=== PATIENT | male | born 1945 | race Caucasian/White ===

== ENCOUNTER → 2018-05-06 12:08 | Outpatient (CLI) | payer MEDICARE, OTHER, SELFPAY ==
[2018-05-06 12:50] LABS: Blood Urea Nitrogen 18 mg/dL (9-20)
== END ==
PROVIDERS: PCP Internal Medicine; Visit Provider Urology
DX: R31.0 Gross hematuria (principal)
CPT/HCPCS: 36415; 82565; 84520

== ENCOUNTER → 2018-05-07 10:16 | Outpatient (CLI) | payer MEDICARE, OTHER, SELFPAY ==
--- NOTE | 2018-05-07 | DI.CT.S_ITS ---
PROCEDURE: CT ABDOMEN PELVIS WO/W CON INDICATIONS: Gross hematuria TECHNIQUE: Optional 5 mm thick noncontrast images acquired from the diaphragm to the symphysis pubis. After the administration of intravenous contrast, 5 mm thick images acquired from the diaphragm to the symphysis pubis after a 10-minute delay. 2 mm thick coronal and sagittal reformats were then performed of the kidneys and ureters. For radiation dose reduction, the following was used: automated exposure control, adjustment of mA and/or kV according to patient size. COMPARISON: [facility], CT, ABDOMEN/PELVIS WITH CONTRAST, 11/18/2013, 15:57. [facility], CT, ABDOMEN/PELVIS WITHOUT CONTRAS, 11/02/2013, 12:10. [facility], CT, KIDNEY/ URETER/BLADDER, 05/08/2008, 5:22. FINDINGS: Image quality: Excellent. Lung bases: Lung bases are clear. Heart size is normal. Urinary system: Both kidneys are normal in size, without hydronephrosis or nephrolithiasis on pre-contrast images. Bilateral renal cysts are stable compared 11/18/2013. No perinephric fat stranding. There is normal bilateral renal enhancement. Renal calyces appear normal in morphology when filled with contrast. Opacified portions of both ureters demonstrate normal caliber. Urinary bladder wall is slightly thickened and trabeculated. Patent urachal remnant involving the anterior midline of the superior bladder is stable. No calcified bladder stones. The prostate is enlarged. Other solid organs: Liver is normal in size and enhancement. 8mm cyst the lateral segment of the left hepatic lobe is stable compared to prior exams. Gallbladder is within normal limits. Biliary system is non dilated. Pancreas enhances normally. Spleen is normal in size and enhancement. Spleen has irregular contours possibly related to trauma in the remote past. No adrenal nodules. Peritoneum and bowel: Bowel loops demonstrate normal wall thickness and caliber. Numerous diverticuli are identified throughout the colon. Mild inflammatory changes noted adjacent to diverticuli at the junction of the left/sigmoid colon compatible with uncomplicated diverticulitis. No free fluid or air. Nodes and vessels: No retroperitoneal or mesenteric adenopathy by size criteria. Aorta and inferior vena cava are normal in size. Abdominal wall: No ventral hernias. Pelvis: No pathologic free pelvic fluid. No inguinal hernias or adenopathy. Bones: No suspicious bony lesions. No vertebral body compression fractures. Spine degenerative disc disease and facet arthropathy. IMPRESSION: 1. No renal stone or hydronephrosis. 2. No renal mass identified. 3. No abnormal filling defects identified in the genitourinary collecting system. 4. Mild, diffuse urinary bladder thickening and trabeculation likely related to chronic inflammation, however underlying infiltrating neoplastic process cannot be completely excluded by CT imaging. 5. Patent urinary bladder urachal remnant is stable compared to prior exams. 6. Mild distal left colon diverticulitis without associated free air or peridiverticular abscess. 7. Prostate hypertrophy. 8. Findings discussed with Amanda Damian of Dr. Mal Pat's office on 05/07/18 at 1211 hrs. Ms. Damian will relay the findings to Dr. Pat. Dictated by: Luzma Osborne MD, PhD on 05/07/2018 at 11:54 Approved by: Luzma Osborne MD, PhD on 05/07/2018 at 12:12
== END ==
PROVIDERS: PCP Physician Assistant; Visit Provider Urology
DX: R31.0 Gross hematuria (principal); N32.89 Other specified disorders of bladder; N40.0 Benign prostatic hyperplasia without lower urinary tract symptoms; K57.32 Diverticulitis of large intestine without perforation or abscess without bleeding
CPT/HCPCS: 74178; Q9967

== ENCOUNTER → 2018-06-25 10:43 | Outpatient (CLI) | payer MEDICARE, OTHER, SELFPAY ==
--- NOTE | 2018-06-25 10:51 | DI.RAD.S_ITS ---
PROCEDURE: XR CHEST 2V INDICATIONS: PREOPERATIVE FOR SURGERY TECHNIQUE: 2 views of the chest were acquired. COMPARISON: None. FINDINGS: Surgical changes and devices: None. Lungs and pleura: No pleural effusions or pneumothorax. Lungs are clear. Mediastinum: Mediastinal contours are normal. Heart size is normal. Bones and chest wall: No suspicious bony abnormalities. Soft tissues appear unremarkable. IMPRESSION: Normal for age. Dictated by: Zeyad Onofre M.D. on 06/25/2018 at 11:47 Approved by: Zeyad Onofre M.D. on 06/25/2018 at 11:47
[2018-06-25 12:09] LABS: Add Manual Diff / Slide Review NO; Basophils Percent Auto 1.1 % (0-2); Eosinophils Percent Auto 1.5 % (2-4); Hematocrit 47.2 % (41-53); Hemoglobin 15.7 g/dL (13.5-17.5); Lymphocytes Percent Auto 24.5 % (25-40); Mean Corpuscular HGB Conc 33.3 % (30-36); Mean Corpuscular Hemoglobin 31.9 PG (26-34); Neutrophils Absolute Auto 2700 /uL (3000-5900); Neutrophils Percent Auto 62.9 % (50-75); Platelet Count 177 X10^3/uL (150-400); Red Blood Cell Count 4.92 X10^6/uL (4.5-5.9); Red Cell Distribution Width 14.7 % (11.6-14.8); White Blood Cell Count 4.2 X10^3/uL (4.5-11.0)
[2018-06-25 12:27] LABS: BUN Creatinine Ratio 14.5 (6-22); Blood Urea Nitrogen 16 mg/dL (9-20); Calcium 9.8 mg/dL (8.4-10.2); Carbon Dioxide 32 mmol/L (22-32); Chloride 101 mmol/L (98-107); Estimated Glomerular Filt Rate > 60.0 mL/min (>60); Glucose 91 mg/dL (80-110); HEMOLYSIS < 15 (0-50); Sodium 144 mmol/L (137-145)
== END ==
PROVIDERS: PCP Physician Assistant; Visit Provider Urology
DX: N32.9 Bladder disorder, unspecified (principal); I48.91 Unspecified atrial fibrillation
CPT/HCPCS: 36415; 71046; 80048; 85025; 93005; 93010

== ENCOUNTER → 2018-09-19 15:28 | Outpatient (CLI) | payer MEDICARE, OTHER, SELFPAY ==
[2018-09-19 16:47] LABS: B Type Natriuretic Peptide 195 (<100)
== END ==
PROVIDERS: PCP Physician Assistant; Visit Provider Nurse Practitioner Family
DX: R06.02 Shortness of breath (principal)
CPT/HCPCS: 36415; 83880

== ENCOUNTER → 2018-09-25 12:17 | Outpatient (CLI) | payer MEDICARE, OTHER, SELFPAY ==
[2018-09-25 12:44] LABS: Bacteria Urine None Seen
[2018-09-25 13:13] LABS: Appearance Urine UA CLEAR; Bilirubin Urine UA NEGATIVE (NEGATIVE); Color Urine UA YELLOW; Glucose Urine UA NEGATIVE (Negative); Ketones Urine UA NEGATIVE (NEGATIVE); Leukocyte Esterase Urine UA NEGATIVE (NEGATIVE); Nitrite Urine UA NEGATIVE (Negative); Occult Blood Urine UA 2+ (Negative); Protein Urine UA NEGATIVE (Negative); Specific Gravity Urine UA 1.015 (1.000-1.035); Urobilinogen Urine UA 0.2 E.U./dL (0.2)
[2018-09-25 13:26] LABS: Culture Indicated Urine Cult Not Indicated; RBC Urine 1-5/HPF (0-5/HPF); Squamous Epithelial Cell Urine 0-1 /HPF; WBC Urine 0-1/HPF (0-5/HPF)
[2018-09-29 23:29] LABS: Alpha 1 Globulin 0.3 g/dL (0.2-0.3); Alpha 2 Globulin 0.7 g/dL (0.5-0.9); Beta 1 Globulin 0.5 g/dL (0.4-0.6); Gamma Globulin 1.2 g/dL (0.8-1.7)
== END ==
PROVIDERS: Family Provider Urology; PCP Physician Assistant; Visit Provider Nurse Practitioner Family
DX: R06.02 Shortness of breath (principal); R93.1 Abnormal findings on diagnostic imaging of heart and coronary circulation
CPT/HCPCS: 36415; 81001; 84155; 84165

== ENCOUNTER → 2018-10-21 13:59 | Outpatient (CLI) | payer MEDICARE, OTHER, SELFPAY | PROVIDERS: Family Provider Urology; PCP Physician Assistant; Visit Provider Urology | DX: N40.1 Benign prostatic hyperplasia with lower urinary tract symptoms (principal) | CPT/HCPCS: 36415; 84153 ==

== ENCOUNTER → 2018-10-23 15:59 | Outpatient (CLI) | payer MEDICARE, OTHER, SELFPAY ==
[2018-10-23 17:18] LABS: BUN Creatinine Ratio 19.2 (6-22); Blood Urea Nitrogen 23 mg/dL (9-20); Calcium 9.2 mg/dL (8.4-10.2); Carbon Dioxide 26 mmol/L (22-32); Chloride 102 mmol/L (98-107); Glucose 113 mg/dL (80-110); HEMOLYSIS < 15 (0-50); Potassium 4.5 mmol/L (3.4-5.1); Sodium 139 mmol/L (137-145)
== END ==
PROVIDERS: Family Provider Urology; PCP Physician Assistant; Visit Provider Nurse Practitioner Family
DX: I50.9 Heart failure, unspecified (principal)
CPT/HCPCS: 36415; 80048

== ENCOUNTER → 2019-03-31 11:18 | Outpatient (CLI) | payer MEDICARE, OTHER, SELFPAY ==
[2019-03-31 13:55] LABS: Blood Urea Nitrogen 22 mg/dL (9-20); Calcium 9.2 mg/dL (8.4-10.2); Carbon Dioxide 27 mmol/L (22-32); Chloride 102 mmol/L (98-107); Estimated Glomerular Filt Rate > 60.0 mL/min (>60); Glucose 102 mg/dL (80-110); HEMOLYSIS < 15 (0-50); Potassium 4.6 mmol/L (3.4-5.1); Sodium 138 mmol/L (137-145)
== END ==
PROVIDERS: PCP Physician Assistant; Visit Provider Internal Medicine Cardiovascular Disease
DX: I50.30 Unspecified diastolic (congestive) heart failure (principal)
CPT/HCPCS: 36415; 80048

== ENCOUNTER → 2019-06-15 13:08 | Outpatient (CLI) | payer MEDICARE, OTHER, SELFPAY ==
--- NOTE | 2019-06-15 | DI.RAD.S_ITS ---
PROCEDURE: XR CERVICAL SPINE 2V OR 3V INDICATIONS: Cervicalgia TECHNIQUE: 3 view(s) of the cervical spine were acquired. COMPARISON: None. FINDINGS: Bones: No fractures or dislocations to the C7-T1 level. The lateral masses of C1 appear intact on the odontoid view. No suspicious bony lesions. Mild degenerative changes are present throughout the cervical spine including intervertebral disc space narrowing and osteophytosis. There is grade I C4 on C5 anterolisthesis. Soft tissues: No prevertebral soft tissue swelling. IMPRESSION: Degenerative change and trace anterolisthesis. Dictated by: Alissa Levi M.D. on 06/15/2019 at 16:03 Approved by: Alissa Levi M.D. on 06/15/2019 at 16:03
--- NOTE | 2019-06-15 | DI.RAD.S_ITS ---
PROCEDURE: XR LUMBAR SPINE 2-3V INDICATIONS: Cervicalgia TECHNIQUE: 3 views of the lumbar spine were acquired. COMPARISON: [facility], , L-SPINE 2-3 VIEWS, 02/08/2012, 15:20. FINDINGS: Bones: There are 5 pga-num-[id number] lumbar vertebral bodies. There is grade I L4 on L5 anterolisthesis. This is new when compared with the prior study dated 02/08/12. Mild degenerative changes are present throughout the lumbar spine. Intervertebral disc space narrowing and endplate sclerosis is present at L5-S1. No wedge compression deformities. Soft tissues: Overlying bowel gas pattern is normal. No suspicious soft tissue calcifications. IMPRESSION: Degenerative change and spondylolisthesis. Dictated by: Alissa Levi M.D. on 06/15/2019 at 15:34 Approved by: Alissa Levi M.D. on 06/15/2019 at 15:35
== END ==
PROVIDERS: PCP Physician Assistant; Visit Provider Physician Assistant
DX: M54.2 Cervicalgia (principal); M47.812 Spondylosis without myelopathy or radiculopathy, cervical region; M43.16 Spondylolisthesis, lumbar region; M47.816 Spondylosis without myelopathy or radiculopathy, lumbar region
CPT/HCPCS: 72040; 72100

== ENCOUNTER → 2019-07-07 14:43 | Outpatient (CLI) | payer MEDICARE, OTHER, SELFPAY ==
--- NOTE | 2019-07-07 | DI.MRI.S_ITS ---
PROCEDURE: MR LUMBAR SPINE WO CON INDICATIONS: LOW BACK PAIN. BILATERAL LEG PAIN AND WEAKNESS TECHNIQUE: Noncontrast sagittal T1 spin echo and T2 fast echo, sagittal STIR, axial T1 and T2 fast spin echo through the lumbar spine. In cases with scoliosis, additional coronal T2 fast spin echo may be performed. COMPARISON: [facility], MR, L-SPINE WITHOUT CONTRAST, 12/02/2015, 8:27. [facility], CR, XR LUMBAR SPINE 2-3V, 06/15/2019, 14:12. FINDINGS: Image quality: Excellent. Alignment and Curvature: 5 lumbar type vertebral bodies are present by plain film. There is mild grade 1 retrolisthesis of L1 on L2 and L2 on L3. Mild grade 1 anterolisthesis of L4 on L5. Bone Marrow: Marrow is of normal overall signal. No acute vertebral body compression fractures. There is mild reactive signal within the endplates adjacent to the T12-L1, L1-L2, L2-L3, L4-L5, and L5-S1 intervertebral discs. Spinal Cord: Conus medullaris terminates at the upper L2 level. Visualized cord demonstrates normal signal and size. Paraspinous Soft Tissues: No paravertebral masses. Circumaortic left renal vein. L1-L2: Congenital canal stenosis. Moderate disc desiccation. Mild diffuse disc bulge. Mild facet and ligamentum flavum hypertrophy. Mild epidural lipomatosis. Mild canal stenosis. Mild bilateral foraminal stenosis. No change. L2-L3: Congenital canal stenosis. Moderate disc desiccation. Moderate diffuse disc bulge. Mild facet and ligamentum flavum hypertrophy. Mild epidural lipomatosis. Increased, moderate to severe canal stenosis. Increased, mild bilateral foraminal stenosis. L3-L4: Congenital canal stenosis. Moderate disc desiccation. Mild diffuse disc bulge. Mild facet and ligamentum flavum hypertrophy. Mild epidural lipomatosis. Moderate canal stenosis. Moderate subarticular foraminal stenosis bilaterally. No change. L4-L5: Congenital canal stenosis. Moderate disc height loss and desiccation. Moderate diffuse disc bulge. Moderate facet and ligamentum flavum hypertrophy. Mild epidural lipomatosis. There is increased, severe canal stenosis. There is no change in moderate subarticular foraminal stenosis bilaterally. L5-S1: Severe disc height loss and desiccation. Moderate diffuse disc bulge/osteophyte. Mild facet hypertrophy bilaterally. Mild canal stenosis. Moderate subarticular foraminal stenosis bilaterally. No change. IMPRESSION: 1. 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 2. Multilevel canal stenoses, worse at L2-L3 and L4-L5 as described above. 3. Multilevel foraminal stenoses, worse at L3-L4, L4-L5, and L5-S1, where there are moderate foraminal stenoses present. Dictated by: Cailin Izquierdo M.D. on 07/07/2019 at 16:11 Approved by: Cailin Izquierdo M.D. on 07/07/2019 at 16:18
--- NOTE | 2019-07-07 | DI.MRI.S_ITS ---
PROCEDURE: MR CERVICAL SPINE WO CON INDICATIONS: NECK PAIN. BILATERAL ARM PAIN, WEAKNESS TECHNIQUE: Noncontrast sagittal T1 spin echo and T2 fast spin echo, sagittal STIR, foraminal oblique sagittal T2 fast spin echo, and axial gradient echo or T2 fast spin echo through the cervical spine. COMPARISON: None. FINDINGS: Image quality: Diagnostic Alignment and Curvature: There is mild retrolisthesis seen at C4-C5 and C7-T1. Bone Marrow: Marrow demonstrates normal overall signal. Spinal Cord: Visualized spinal cord has normal size and signal. No cerebellar tonsillar herniation. Paraspinous Soft Tissues: No paravertebral masses. Prevertebral soft tissues are normal in thickness. C2-C3: The disc height is well-preserved. Loss of disc signal is seen at this level. Mild to moderate disc osteophyte complex is seen, with a mild central disc osteophyte protrusion. There is moderate right-sided and mild left-sided neural foraminal narrowing seen. Mild central canal narrowing is seen, with minimal mass effect upon the ventral spinal cord. C3-C4: The disc height is well-preserved. Loss of disc signal is seen at this level. Moderate generalized disc osteophyte complex is seen. There is a central disc osteophyte protrusion seen. There is moderate right-sided and mild left-sided neural foraminal narrowing seen. There is moderate to severe bilateral neural foraminal narrowing seen. Moderate to severe central canal narrowing is seen, with mass effect upon the ventral spinal cord. C4-C5: The disc height is well-preserved. Loss of disc signal is seen at this level. Mild to moderate disc osteophyte complex is seen, which is eccentric to the right. There is moderate right-sided and mild left-sided facet hypertrophy seen. There is moderate to severe right-sided and mild left-sided neural foraminal narrowing seen. Moderate central canal narrowing is seen. C5-C6: There is at least moderate loss of disc height seen. Moderate to prominent disc osteophyte complex is seen, which is eccentric to the left. Uncovertebral joint hypertrophy is seen at this level. Moderate facet joint hypertrophy is seen. Moderate to severe bilateral neural foraminal narrowing is seen. There is moderate to severe central canal narrowing seen, with associated mass effect upon the ventral spinal cord. C6-C7: Moderate loss of disc height is seen. Loss of disc signal is seen. At least moderate disc osteophyte complex is seen, which is eccentric to the left. Uncovertebral joint hypertrophy is seen at this level. Tbcg-lz-hdoluzch facet hypertrophy is seen. There is moderate to severe bilateral neural foraminal narrowing seen. Moderate central canal narrowing is seen, with mild mass effect upon the ventral spinal cord. C7-T1: The disc height is well-preserved. Loss of disc signal is seen at this level. Mmnh-dq-nljeyolu disc osteophyte complex is seen. There is mild to moderate right-sided and moderate left-sided facet hypertrophy seen. There is moderate to severe bilateral neural foraminal narrowing seen, right worse than left. Moderate central canal narrowing is seen. IMPRESSION: Multiple levels of cervical spine degenerative change are seen, which are overall most prominent at C5-C6. Numerous sites of moderate to severe neural foraminal narrowing are seen. Dictated by: Errol Dunham M.D. on 07/07/2019 at 15:01 Approved by: Errol Dunham M.D. on 07/07/2019 at 15:06
== END ==
PROVIDERS: PCP Physician Assistant; Visit Provider Physical Medicine & Rehabilitation
DX: M54.2 Cervicalgia (principal); M47.22 Other spondylosis with radiculopathy, cervical region; M48.02 Spinal stenosis, cervical region; M79.602 Pain in left arm; M79.601 Pain in right arm; M54.5 Low back pain; M79.605 Pain in left leg; M79.604 Pain in right leg; M48.062 Spinal stenosis, lumbar region with neurogenic claudication; M48.07 Spinal stenosis, lumbosacral region; M51.36 Other intervertebral disc degeneration, lumbar region; M51.37 Other intervertebral disc degeneration, lumbosacral region; E88.2 Lipomatosis, not elsewhere classified; R29.898 Other symptoms and signs involving the musculoskeletal system
CPT/HCPCS: 72141; 72148

== ENCOUNTER → 2019-08-03 11:33 | Outpatient (CLI) | payer MEDICARE, OTHER, SELFPAY ==
[2019-08-03 12:46] LABS: Add Manual Diff / Slide Review NO; Basophils Absolute Auto 0 /uL (0-100); Basophils Percent Auto 0.4 % (0-2); Eosinophils Absolute Auto 100 /uL (0-450); Eosinophils Percent Auto 1.3 % (2-4); Hematocrit 46.1 % (41-53); Hemoglobin 15.5 g/dL (13.5-17.5); Lymphocytes Absolute Auto 500 /uL (1100-4500); Lymphocytes Percent Auto 6.2 % (25-40); Mean Corpuscular HGB Conc 33.7 % (30-36); Mean Corpuscular Hemoglobin 32.5 PG (26-34); Mean Corpuscular Volume 96.3 fL (80-100); Monocytes Absolute Auto 400 /uL (0-900); Monocytes Percent Auto 5.5 % (3-14); Neutrophils Absolute Auto 6500 /uL (1500-7000); Neutrophils Percent Auto 86.6 % (50-75); Platelet Count 150 X10^3/uL (150-400); Red Blood Cell Count 4.79 X10^6/uL (4.5-5.9); Red Cell Distribution Width 13.8 % (11.6-14.8); White Blood Cell Count 7.6 X10^3/uL (4.5-11.0)
[2019-08-03 12:59] LABS: Alanine Aminotransferase 31 IU/L (<50); Albumin 4.5 g/dL (3.5-5.0); Albumin Globulin Ratio 1.3 (1.0-2.8); Alkaline Phosphatase 77 U/L (38-126); Aspartate Aminotransferase 41 IU/L (17-59); BUN Creatinine Ratio 17.5 (6-22); Bilirubin Total 1.2 mg/dL (0.2-1.3); Blood Urea Nitrogen 21 mg/dL (9-20); C-Reactive Protein Quant 1.2 mg/dL (<1.0); Calcium 9.7 mg/dL (8.4-10.2); Carbon Dioxide 29 mmol/L (22-32); Chloride 102 mmol/L (98-107); Estimated Glomerular Filt Rate 58.9 mL/min (>60); Globulin 3.5 g/dL (1.7-4.1); Glucose 127 mg/dL (80-110); HEMOLYSIS < 15 (0-50); Magnesium 2.1 mg/dL (1.6-2.3); Potassium 4.7 mmol/L (3.4-5.1); Sodium 139 mmol/L (137-145)
[2019-08-03 13:03] LABS: Erythrocyte Sedimentation Rate 3 MM/HR (0-15)
== END ==
PROVIDERS: PCP Physician Assistant; Visit Provider Physician Assistant
DX: M62.81 Muscle weakness (generalized) (principal); E78.00 Pure hypercholesterolemia, unspecified; M79.10 Myalgia, unspecified site
CPT/HCPCS: 36415; 80053; 83735; 85025; 85651; 86140

== ENCOUNTER → 2019-10-05 19:05 | Outpatient (ROUT) | payer MEDICARE, OTHER, SELFPAY ==
[2019-10-05 19:06] LABS: Bacteria Urine None Seen
[2019-10-05 19:12] LABS: Appearance Urine UA CLEAR; Bilirubin Urine UA NEGATIVE (NEGATIVE); Color Urine UA YELLOW; Glucose Urine UA NEGATIVE (Negative); Ketones Urine UA NEGATIVE (NEGATIVE); Leukocyte Esterase Urine UA NEGATIVE (NEGATIVE); Nitrite Urine UA NEGATIVE (Negative); Occult Blood Urine UA 3+ (Negative); Protein Urine UA NEGATIVE (Negative); Urobilinogen Urine UA 0.2 E.U./dL (0.2)
[2019-10-05 19:21] LABS: RBC Urine >100/HPF (0-5/HPF); WBC Urine 0-1/HPF (0-5/HPF)
== END ==
PROVIDERS: PCP Physician Assistant; Visit Provider Physician Assistant
DX: R31.9 Hematuria, unspecified (principal)
CPT/HCPCS: 81001; 87086

== ENCOUNTER → 2019-12-15 14:32 | Outpatient (CLI) | payer MEDICARE, OTHER, SELFPAY ==
[2019-12-15 15:24] LABS: Bilirubin Urine UA NEGATIVE (NEGATIVE); Color Urine UA YELLOW; Glucose Urine UA NEGATIVE (Negative); Ketones Urine UA NEGATIVE (NEGATIVE); Leukocyte Esterase Urine UA TRACE (NEGATIVE); Nitrite Urine UA NEGATIVE (Negative); Occult Blood Urine UA 3+ (Negative); Protein Urine UA NEGATIVE (Negative); Urobilinogen Urine UA 0.2 E.U./dL (0.2)
[2019-12-15 15:41] LABS: Alanine Aminotransferase 21 IU/L (<50); Albumin 4.4 g/dL (3.5-5.0); Albumin Globulin Ratio 1.3 (1.0-2.8); Alkaline Phosphatase 72 U/L (38-126); Appearance Urine UA Slightly Cloudy; Aspartate Aminotransferase 34 IU/L (17-59); Bilirubin Total 0.7 mg/dL (0.2-1.3); Blood Urea Nitrogen 26 mg/dL (9-20); Calcium 9.4 mg/dL (8.4-10.2); Carbon Dioxide 28 mmol/L (22-32); Chloride 104 mmol/L (98-107); Creatine Kinase 105 U/L (55-170); Estimated Glomerular Filt Rate 56.7 mL/min (>60); Globulin 3.5 g/dL (1.7-4.1); Glucose 102 mg/dL (80-110); HEMOLYSIS < 15 (0-50); Potassium 4.7 mmol/L (3.4-5.1); Sodium 139 mmol/L (137-145); Total Protein 7.9 g/dL (6.3-8.2)
[2019-12-15 15:44] LABS: Bacteria Urine Occasional (0-1); Culture Indicated Urine Specimen Cultured; RBC Urine 30-100/HPF (0-5/HPF); WBC Urine 0-1/HPF (0-5/HPF)
[2019-12-15 15:56] LABS: Add Manual Diff / Slide Review NO; Basophils Absolute Auto 0 /uL (0-100); Basophils Percent Auto 0.7 % (0-2); Creatine Kinase MB 3.18 ng/mL (<2.37); Eosinophils Absolute Auto 100 /uL (0-450); Eosinophils Percent Auto 1.9 % (2-4); Hematocrit 41.9 % (41-53); Hemoglobin 13.7 g/dL (13.5-17.5); Lymphocytes Absolute Auto 1100 /uL (1100-4500); Lymphocytes Percent Auto 16.8 % (25-40); Mean Corpuscular HGB Conc 32.7 % (30-36); Mean Corpuscular Hemoglobin 31.4 PG (26-34); Mean Corpuscular Volume 96.1 fL (80-100); Monocytes Absolute Auto 800 /uL (0-900); Monocytes Percent Auto 12.1 % (3-14); Neutrophils Absolute Auto 4400 /uL (1500-7000); Neutrophils Percent Auto 68.5 % (50-75); Platelet Count 164 X10^3/uL (150-400); Red Blood Cell Count 4.36 X10^6/uL (4.5-5.9); Red Cell Distribution Width 13.8 % (11.6-14.8); White Blood Cell Count 6.4 X10^3/uL (4.5-11.0)
== END ==
PROVIDERS: PCP Physician Assistant; Referring Provider Physician Assistant; Visit Provider Physician Assistant
DX: R31.0 Gross hematuria (principal); M62.50 Muscle wasting and atrophy, not elsewhere classified, unspecified site; R10.9 Unspecified abdominal pain; R14.0 Abdominal distension (gaseous)
CPT/HCPCS: 36415; 80053; 81001; 82550; 82553; 83874; 85025; 87086

== ENCOUNTER → 2020-01-18 16:45 | Outpatient (CLI) | payer MEDICARE, OTHER, SELFPAY | PROVIDERS: PCP Physician Assistant | DX: I48.92 Unspecified atrial flutter (principal) | CPT/HCPCS: 93005 ==

== ENCOUNTER → 2020-06-10 16:04 | Outpatient (CLI) | payer MEDICARE, OTHER, SELFPAY ==
[2020-06-10 16:49] LABS: Add Manual Diff / Slide Review NO; Basophils Absolute Auto 100 /uL (0-100); Eosinophils Absolute Auto 100 /uL (0-450); Eosinophils Percent Auto 2.1 % (2-4); Hematocrit 40.1 % (41-53); Hemoglobin 13.5 g/dL (13.5-17.5); Lymphocytes Absolute Auto 1000 /uL (1100-4500); Lymphocytes Percent Auto 18.8 % (25-40); Mean Corpuscular HGB Conc 33.7 % (30-36); Mean Corpuscular Hemoglobin 31.4 PG (26-34); Mean Corpuscular Volume 93.2 fL (80-100); Monocytes Absolute Auto 800 /uL (0-900); Monocytes Percent Auto 15.3 % (3-14); Neutrophils Absolute Auto 3300 /uL (1500-7000); Neutrophils Percent Auto 62.8 % (50-75); Platelet Count 165 X10^3/uL (150-400); Red Blood Cell Count 4.31 X10^6/uL (4.5-5.9); Red Cell Distribution Width 14.4 % (11.6-14.8); White Blood Cell Count 5.2 X10^3/uL (4.5-11.0)
[2020-06-10 18:41] LABS: Alanine Aminotransferase 23 IU/L (<50); Albumin 4.2 g/dL (3.5-5.0); Albumin Globulin Ratio 1.2 (1.0-2.8); Alkaline Phosphatase 69 U/L (38-126); Aspartate Aminotransferase 35 IU/L (17-59); BUN Creatinine Ratio 16.2 (6-22); Bilirubin Total 0.7 mg/dL (0.2-1.3); Blood Urea Nitrogen 24 mg/dL (9-20); Calcium 9.1 mg/dL (8.4-10.2); Carbon Dioxide 28 mmol/L (22-32); Chloride 103 mmol/L (98-107); Cholesterol 179 mg/dL (140-199); Estimated Glomerular Filt Rate 46.1 mL/min (>60); Globulin 3.5 g/dL (1.7-4.1); Glucose 100 mg/dL (80-110); HDL Cholesterol 53 mg/dL (40-60); HEMOLYSIS < 15 (0-50); LDL Cholesterol Calculated 111 mg/dL (<100); Potassium 4.7 mmol/L (3.4-5.1); Sodium 138 mmol/L (137-145); Total Protein 7.7 g/dL (6.3-8.2); Triglycerides 73 mg/dL (35-150)
[2020-06-16 10:08] LABS: Percent Free Testosterone 3.44 % (1.50-4.20); Testosterone Free 12.73 ng/dL (5.00-21.00); Testosterone Total 370.2 ng/dL (264.0-916.0)
== END ==
PROVIDERS: PCP Physician Assistant; Referring Provider Physician Assistant; Visit Provider Physician Assistant
DX: E78.00 Pure hypercholesterolemia, unspecified (principal)
CPT/HCPCS: 80053; 80061; 84402; 84403; 85025

== ENCOUNTER → 2020-07-05 15:48 | Outpatient (CLI) | payer MEDICARE, OTHER, SELFPAY ==
[2020-07-05 16:55] LABS: BUN Creatinine Ratio 19.3 (6-22); Blood Urea Nitrogen 22 mg/dL (9-20); Calcium 9.2 mg/dL (8.4-10.2); Carbon Dioxide 31 mmol/L (22-32); Chloride 102 mmol/L (98-107); Estimated Glomerular Filt Rate > 60.0 mL/min (>60); Glucose 92 mg/dL (80-110); HEMOLYSIS < 15 (0-50); Potassium 4.2 mmol/L (3.4-5.1); Sodium 137 mmol/L (137-145)
== END ==
PROVIDERS: PCP Physician Assistant; Referring Provider Physician Assistant; Visit Provider Physician Assistant
DX: R74.8 Abnormal levels of other serum enzymes (principal)
CPT/HCPCS: 80048

== ENCOUNTER → 2020-08-10 09:29 | Outpatient (CLI) | payer MEDICARE, OTHER, SELFPAY ==
[2020-08-10 10:19] LABS: Add Manual Diff / Slide Review NO; Basophils Absolute Auto 0 /uL (0-100); Basophils Percent Auto 0.9 % (0-2); Eosinophils Absolute Auto 100 /uL (0-450); Eosinophils Percent Auto 2.3 % (2-4); Hematocrit 40.3 % (41-53); Hemoglobin 13.2 g/dL (13.5-17.5); Lymphocytes Absolute Auto 900 /uL (1100-4500); Lymphocytes Percent Auto 20.2 % (25-40); Mean Corpuscular HGB Conc 32.8 % (30-36); Mean Corpuscular Hemoglobin 30.2 PG (26-34); Mean Corpuscular Volume 92.1 fL (80-100); Monocytes Absolute Auto 600 /uL (0-900); Monocytes Percent Auto 14.7 % (3-14); Neutrophils Absolute Auto 2700 /uL (1500-7000); Neutrophils Percent Auto 61.9 % (50-75); Platelet Count 188 X10^3/uL (150-400); Red Blood Cell Count 4.38 X10^6/uL (4.5-5.9); Red Cell Distribution Width 14.7 % (11.6-14.8); White Blood Cell Count 4.4 X10^3/uL (4.5-11.0)
[2020-08-10 11:02] LABS: Alanine Aminotransferase 25 IU/L (<50); Albumin 4.5 g/dL (3.5-5.0); Albumin Globulin Ratio 1.3 (1.0-2.8); Alkaline Phosphatase 75 U/L (38-126); Aspartate Aminotransferase 34 IU/L (17-59); BUN Creatinine Ratio 17.2 (6-22); Bilirubin Total 0.7 mg/dL (0.2-1.3); Blood Urea Nitrogen 20 mg/dL (9-20); Calcium 9.6 mg/dL (8.4-10.2); Carbon Dioxide 29 mmol/L (22-32); Chloride 102 mmol/L (98-107); Estimated Glomerular Filt Rate > 60.0 mL/min (>60); Globulin 3.6 g/dL (1.7-4.1); Glucose 87 mg/dL (80-110); HEMOLYSIS < 15 (0-50); Potassium 4.5 mmol/L (3.4-5.1); Sodium 139 mmol/L (137-145); Total Protein 8.1 g/dL (6.3-8.2)
[2020-08-10 11:13] LABS: INR 1.6 (0.9-1.3); Prothrombin Time 17.9 SECONDS (10.1-12.7)
[2020-08-10 11:16] LABS: PTT Partial Thromboplastin Tim 37 SECONDS (26.4-36.2)
[2020-08-12 14:36] LABS: Immunoglobulin A, Serum 243 mg/dL (61-437); Immunoglobulin G,Serum 1468 mg/dL (603-1613); Immunoglobulin M, Serum 79 mg/dL (15-143)
== END ==
PROVIDERS: PCP Physician Assistant; Referring Provider Physician Assistant; Visit Provider Physician Assistant
DX: E78.00 Pure hypercholesterolemia, unspecified (principal)
CPT/HCPCS: 36415; 80053; 82784; 84155; 85025; 85610; 85730; 86334; 86335

== ENCOUNTER → 2020-08-17 14:45 | Outpatient (CLI) | payer MEDICARE, OTHER, SELFPAY ==
--- NOTE | 2020-08-17 14:52 | DI.RAD.S_ITS ---
PROCEDURE: XR LUMBAR SPINE 1V INDICATIONS: back pain TECHNIQUE: Single views of the lumbar spine were acquired. COMPARISON: [facility], , XR LUMBAR SPINE 2-3V, 06/15/2019, 14:12. FINDINGS: Bones: No fracture. Multilevel degenerative endplate sclerosis and spurring. Diffuse facet arthropathy. Grade 1 anterolisthesis of L4 on L5. Severe narrowing of the L5-S1 disc space. Postoperative change related to L4-L5 posterior stabilization. Hardware appears grossly intact. Soft tissues: Overlying bowel gas pattern is normal. No suspicious soft tissue calcifications. IMPRESSION: Postsurgical and degenerative changes as above Grade 1 anterolisthesis of L4 on L5 as before Dictated by: Jaquan Patrick M.D. on 08/17/2020 at 16:02 Approved by: Jaquan Patrick M.D. on 08/17/2020 at 16:04
== END ==
PROVIDERS: PCP Physician Assistant; Referring Provider Physician Assistant Medical; Visit Provider Physician Assistant Medical
DX: M54.9 Dorsalgia, unspecified (principal); M47.816 Spondylosis without myelopathy or radiculopathy, lumbar region; M43.16 Spondylolisthesis, lumbar region; M48.07 Spinal stenosis, lumbosacral region
CPT/HCPCS: 72020

== ENCOUNTER → 2020-08-20 11:16 | Outpatient (CLI) | payer MEDICARE, OTHER, SELFPAY ==
[2020-08-20 11:36] LABS: Bacteria Urine None Seen
[2020-08-20 12:11] LABS: Appearance Urine UA CLEAR; Bilirubin Urine UA NEGATIVE (NEGATIVE); Color Urine UA YELLOW; Glucose Urine UA NEGATIVE (Negative); Ketones Urine UA NEGATIVE (NEGATIVE); Leukocyte Esterase Urine UA NEGATIVE (NEGATIVE); Nitrite Urine UA NEGATIVE (Negative); Occult Blood Urine UA 3+ (Negative); Protein Urine UA NEGATIVE (Negative); Urobilinogen Urine UA 0.2 E.U./dL (0.2)
[2020-08-20 12:13] LABS: Add Manual Diff / Slide Review NO; Basophils Absolute Auto 100 /uL (0-100); Basophils Percent Auto 1.3 % (0-2); Eosinophils Absolute Auto 100 /uL (0-450); Eosinophils Percent Auto 2.9 % (2-4); Hematocrit 38.6 % (41-53); Hemoglobin 12.7 g/dL (13.5-17.5); Lymphocytes Absolute Auto 700 /uL (1100-4500); Lymphocytes Percent Auto 14.6 % (25-40); Mean Corpuscular Volume 91.1 fL (80-100); Monocytes Absolute Auto 600 /uL (0-900); Monocytes Percent Auto 13.2 % (3-14); Neutrophils Absolute Auto 3200 /uL (1500-7000); Platelet Count 177 X10^3/uL (150-400); Red Blood Cell Count 4.24 X10^6/uL (4.5-5.9); Red Cell Distribution Width 14.7 % (11.6-14.8); White Blood Cell Count 4.8 X10^3/uL (4.5-11.0)
[2020-08-20 12:31] LABS: Amorphous Sediment Urine 1+; RBC Urine 5-10/HPF (0-5/HPF); WBC Urine 5-10/HPF (0-5/HPF)
[2020-08-20 12:32] LABS: Alanine Aminotransferase 29 IU/L (<50); Albumin 4.3 g/dL (3.5-5.0); Albumin Globulin Ratio 1.2 (1.0-2.8); Alkaline Phosphatase 79 U/L (38-126); Aspartate Aminotransferase 37 IU/L (17-59); Bilirubin Total 0.9 mg/dL (0.2-1.3); Blood Urea Nitrogen 17 mg/dL (9-20); Calcium 9.3 mg/dL (8.4-10.2); Carbon Dioxide 27 mmol/L (22-32); Chloride 104 mmol/L (98-107); Estimated Glomerular Filt Rate > 60.0 mL/min (>60); Globulin 3.5 g/dL (1.7-4.1); Glucose 110 mg/dL (80-110); HEMOLYSIS < 15 (0-50); Potassium 4.3 mmol/L (3.4-5.1); Sodium 137 mmol/L (137-145); Total Protein 7.8 g/dL (6.3-8.2)
[2020-08-20 12:33] LABS: Creatinine Urine Random 39.8 mg/dL; Protein (Total) Urine Random 11 mg/dL (0-12); Protein Creatinine Ratio Urine 0.27 GRAM/24H
[2020-08-20 12:42] LABS: INR 1.8 (0.9-1.3)
[2020-08-20 12:45] LABS: PTT Partial Thromboplastin Tim 38 SECONDS (26.4-36.2)
[2020-08-22 13:09] LABS: Free Kappa Lt Chains, Serum 34.6 mg/L (3.3-19.4); Free Lambda Lt Chains,Serum 20.2 mg/L (5.7-26.3)
[2020-08-23 14:58] LABS: Albumin 3.7 g/dL (2.9-4.4); Alpha-1-Globulin 0.3 g/dL (0.0-0.4); Alpha-2-Globulin 0.7 g/dL (0.4-1.0); Gamma Globulin 1.3 g/dL (0.4-1.8); Globulin Total 3.3 g/dL (2.2-3.9)
[2020-08-23 15:08] LABS: M-Spike % Not Observed % (Not Observed); Urine Total Protein 4.7 mg/dL (Not Estab.)
== END ==
PROVIDERS: PCP Physician Assistant; Referring Provider Physician Assistant; Visit Provider Physician Assistant
DX: E85.82 Wild-type transthyretin-related (ATTR) amyloidosis (principal); R23.8 Other skin changes; I43 Cardiomyopathy in diseases classified elsewhere
CPT/HCPCS: 36415; 80053; 81001; 82570; 83883; 84155; 84156; 84165; 84166; 85025; 85610; 85730

== ENCOUNTER → 2020-10-11 09:00 | Outpatient (CLI) | payer MEDICARE, OTHER, SELFPAY ==
--- NOTE | 2020-10-11 | DI.ECHO.S_ITS ---
[facility] +---------+ : : [address] : : : : [id number] : : : : Phone: [phone]+ Echocardiogram Report + + :Name: GILDARDO CLANCY Study Date: 10/11/2020 Height: 70 in : :[facility] ReadingLocation: Weight: 194 lb : : Gender: Male BSA: 2.1 m2 : :: 1945 Age: 75 yrs BP: 122/70 mmHg: :Reason For Study: ATRIAL FLUTTER : :Ordering Physician: KARL, : :TUCKER Performed By: Charlene Jacobs : :Referring: Alyse Aas : + + Interpretation Summary The left ventricular cavity is small. There is severe concentric left ventricular hypertrophy. 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 Left ventricular global longitudinal strain average is -13.7%. 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 Left ventricular ejection fraction is estimated to be 50 +/- 5%. Compared to the prior exam, the left ventricular function is reduced. Diastolic parameters suggest a restrictive filling pattern consistent with probable significantly elevated filling pressures. The right ventricle is grossly normal size. Right ventricular systolic function is mildly reduced. There is moderate mitral regurgitation. Compared to the prior echo study, there has been no change in the severity of mitral regurgitation. There is mild aortic regurgitation. Compared to the prior echo study, there has been no change in the severity of aortic regurgitation. There is mild tricuspid regurgitation. Compared to the prior echo exam, there has been no change in TR severity. Pulmonary artery pressures cannot be estimated because of the lack of a measurable TR jet velocity but the IVC suggests a CVP of around 8 mmHg. Procedure: A two-dimensional transthoracic echocardiogram with color flow and Doppler was performed. The study quality was technically adequate. Comparison is made with the echocardiogram of 01/23/2017. The heart rate ranged between 51-62 bpm during the study. Initial rhythm appears to be atrial fibrillation with controlled ventricular rate and later on patient converted to sinus rhythm with first-degree AV block. Left Ventricle: The estimated left ventricular end diastolic volume is 91 ml. There is severe concentric left ventricular hypertrophy. The left ventricular cavity is small. Trabeculae near apex are visualized. No thrombus is observed. A false chord is noted (normal variant). Left ventricular global longitudinal strain average is -13.7%. Left ventricular ejection fraction is estimated to be 50 +/- 5%. Compared to the prior exam, the left ventricular function is reduced. There is basal inferior wall hypokinesis. Diastolic parameters suggest a restrictive filling pattern consistent with probable significantly elevated filling pressures. Right Ventricle: The right ventricle is grossly normal size. Right ventricular systolic function is mildly reduced. Atria: Both atria are severely dilated. Both atria have remained unchanged in size since the prior echo exam. There is no Doppler evidence for an interatrial shunt. Mitral Valve: The mitral valve leaflets appear mildly thickened, but open well. There is mild mitral annular calcification. There is moderate mitral regurgitation. Compared to the prior echo study, there has been no change in the severity of mitral regurgitation. Aortic Valve: The aortic valve is trileaflet. The aortic valve opens well. The aortic valve is slightly calcified. There is no aortic valve stenosis. There is mild aortic regurgitation. Compared to the prior echo study, there has been no change in the severity of aortic regurgitation. Tricuspid Valve: The tricuspid valve is not well visualized, but is grossly normal. There is mild tricuspid regurgitation. Pulmonary artery pressures cannot be estimated because of the lack of a measurable TR jet velocity but the IVC suggests a CVP of around 8 mmHg. Compared to the prior echo exam, there has been no change in TR severity. Pulmonic Valve: The pulmonic valve is not well visualized. There is no pulmonic valvular regurgitation. Great Vessels: The aortic root is normal size. The dimensions of the ascending aorta are normal. The IVC is of normal diameter and collapses less than 50% with a sniff. This suggests a right atrial pressure of 8 mm Hg. Pericardium/ Pleura There is no pericardial effusion. There is no pleural effusion. MMode/2D Measurements & Calculations LVIDd: 3.9 cm LVOT diam: 2.1 cm LVIDs: 3.3 cm Ao root diam: 3.5 cm FS: 17.2 % asc Aorta Diam: 2.9 cm EPSS: 0.80 cm Ao Arch Diam (Prox Trans): 2.8 cm IVSd: 1.8 cm LVPWd: 1.9 cm LV shea. diameter/BSA (cm/m^2): 1.9 LV sys. diameter/BSA (cm/m^2): 1.6 LA A2 area: 33.0 cm2 RA long axis: 7.0 cm LA A4 area: 32.3 cm2 RA area: 30.0 cm2 LA length (vol): 7.2 cm RA vol: 109.7 ml LA vol: 124.8 ml RA : 53.2 ml/m2 LA vol index: 60.6 ml/m2 IVC diam: 1.9 cm RVD1 (basal): 3.9 cm TAPSE: 1.4 cm Doppler Measurements & Calculations Ao V2 max: 99.7 cm/sec LVOT Max Leo: 72.8 cm/sec Ao V2 mean: 66.2 cm/sec LV V1 max P.1 mmHg Ao max P.0 mmHg LV V1 VTI: 15.5 cm Ao mean P.0 mmHg ERI(I,D): 2.7 cm2 Ao V2 VTI: 19.4 cm ERI(V,D): 2.5 cm2 sev ratio: 0.80 ERI indexed to BSA (cm^2/m^2): 1.3 AI P1/2t: 551.9 msec AI dec slope: 188.4 cm/sec2 MV E max leo: 119.3 cm/sec PA V2 max: 49.8 cm/sec MV A max leo: 2.2 cm/sec PA V2 mean: 33.3 cm/sec MV E/A: 54.8 PA mean P.52 mmHg Med Peak E' Leo: 3.1 cm/sec PA pr(Accel): 0.22 mmHg E/E' med: 38.7 Lat Peak E' Leo: 4.9 cm/sec E/E' lat: 24.2 E/e' average: 31.5 MV dec time: 0.20 sec MR VTI: 137.9 cm SV(LVOT): 52.8 ml Reading Physician:02:18 PM
== END ==
PROVIDERS: PCP Physician Assistant; Referring Provider Physician Assistant; Visit Provider Physician Assistant
DX: I08.3 Combined rheumatic disorders of mitral, aortic and tricuspid valves (principal); I48.92 Unspecified atrial flutter; I43 Cardiomyopathy in diseases classified elsewhere
CPT/HCPCS: 93306

== ENCOUNTER → 2020-10-13 16:21 | Outpatient (CLI) | payer MEDICARE, OTHER, SELFPAY ==
[2020-10-13 18:25] LABS: Alanine Aminotransferase 21 IU/L (<50); Albumin 4.3 g/dL (3.5-5.0); Albumin Globulin Ratio 1.1 (1.0-2.8); Alkaline Phosphatase 87 U/L (38-126); Aspartate Aminotransferase 36 IU/L (17-59); BUN Creatinine Ratio 14.6 (6-22); Bilirubin Total 0.7 mg/dL (0.2-1.3); Blood Urea Nitrogen 23 mg/dL (9-20); Calcium 9.3 mg/dL (8.4-10.2); Carbon Dioxide 32 mmol/L (22-32); Chloride 101 mmol/L (98-107); Estimated Glomerular Filt Rate 43.1 mL/min (>60); Globulin 3.8 g/dL (1.7-4.1); Glucose 101 mg/dL (80-110); HEMOLYSIS < 15 (0-50); Potassium 5.1 mmol/L (3.4-5.1); Sodium 137 mmol/L (137-145); Total Protein 8.1 g/dL (6.3-8.2)
== END ==
PROVIDERS: PCP Physician Assistant; Referring Provider Urology; Visit Provider Urology
DX: E85.4 Organ-limited amyloidosis (principal); N33 Bladder disorders in diseases classified elsewhere
CPT/HCPCS: 36415; 80053

== ENCOUNTER → 2020-10-19 10:45 | Outpatient (CLI) | payer MEDICARE, OTHER, SELFPAY ==
--- NOTE | 2020-10-19 10:51 | DI.CT.S_ITS ---
PROCEDURE: CT ABDOMEN PELVIS WO/W CON INDICATIONS: Organ-limited amyloidosis TECHNIQUE: Optional 5 mm thick noncontrast images acquired from the diaphragm to the symphysis pubis. After the administration of intravenous contrast, 5 mm thick images acquired from the diaphragm to the symphysis pubis after a 10-minute delay. 2 mm thick coronal and sagittal reformats were then performed of the kidneys and ureters. For radiation dose reduction, the following was used: automated exposure control, adjustment of mA and/or kV according to patient size. COMPARISON: [facility], CT, CT ABDOMEN PELVIS WO/W CON, 05/07/2018, 10:27. FINDINGS: Image quality: Excellent. Lung bases: Lung bases are clear. Heart size is normal. Urinary system: Both kidneys are normal in size, without hydronephrosis or nephrolithiasis on pre-contrast images. There are focal bilateral small renal cortical defects consistent with remote insults. No perinephric fat stranding. There is normal bilateral renal enhancement. Renal calyces appear normal in morphology when filled with contrast. Opacified portions of both ureters demonstrate normal caliber. Enlarged prostate indenting on the base of the bladder. Mild diffuse bladder wall thickening. Interval increase in the size of an anterior fundal bladder diverticulum. No calcified bladder stones. Other solid organs: Liver is normal in size and enhancement. Gallbladder is unremarkable . Biliary system is non dilated. Pancreas enhances normally. Spleen is normal in size and enhancement. Again noted is irregular appearance of the surface of the spleen consistent with sequelae of remote trauma. No adrenal nodules. Peritoneum and bowel: Bowel loops demonstrate normal wall thickness and caliber. No free fluid or air. Moderately advanced sigmoid diverticulosis without evidence of diverticulitis. Nodes and vessels: No retroperitoneal or mesenteric adenopathy by size criteria. Aorta and inferior vena cava are normal in size. Incidental note made of the presence of circumaortic left renal vein. Abdominal wall: No ventral hernias. Pelvis: No pathologic free pelvic fluid. No inguinal hernias or adenopathy. Bones: No suspicious bony lesions. No vertebral body compression fractures. Lumbar degenerative change. Previous surgery to separate the spinous processes of L4 and L5. Interval development of a broad-based posterior disc protrusion at L2-L3 which contributes to severe canal stenosis. There is also canal stenosis at L4-L5. IMPRESSION: 1. Prostate hypertrophy, as before. 2. Bladder wall thickening and trabeculations. Interval increase in anterior fundal bladder diverticulum. 3. No renal mass, renal stone, hydronephrosis, or ureteral stone. 4. Sigmoid diverticulosis. 5. Diffuse lumbar degenerative change. 6. Development of a disc protrusion at L2-L3 contributes to severe canal stenosis. There is also canal stenosis at L4-L5. Dictated by: Dale Levy M.D. on 10/19/2020 at 13:25 Approved by: Dale Levy M.D. on 10/19/2020 at 13:34
== END ==
PROVIDERS: PCP Physician Assistant; Referring Provider Urology; Visit Provider Urology
DX: E85.4 Organ-limited amyloidosis (principal); N33 Bladder disorders in diseases classified elsewhere; N40.1 Benign prostatic hyperplasia with lower urinary tract symptoms; R31.0 Gross hematuria; N32.89 Other specified disorders of bladder; K57.30 Diverticulosis of large intestine without perforation or abscess without bleeding; M47.816 Spondylosis without myelopathy or radiculopathy, lumbar region; M48.061 Spinal stenosis, lumbar region without neurogenic claudication; M51.26 Other intervertebral disc displacement, lumbar region
CPT/HCPCS: 74178; Q9967

== ENCOUNTER → 2021-07-15 10:36 | Outpatient (CLI) | payer MEDICARE, OTHER, SELFPAY ==
[2021-07-15 11:51] LABS: BUN Creatinine Ratio 15.5 (6-22); Blood Urea Nitrogen 20 mg/dL (9-20); Calcium 9.4 mg/dL (8.4-10.2); Carbon Dioxide 29 mmol/L (22-32); Chloride 100 mmol/L (98-107); Estimated Glomerular Filt Rate 53.9 mL/min (>60); Glucose 106 mg/dL (80-110); HEMOLYSIS < 15 (0-50); Potassium 4.4 mmol/L (3.4-5.1); Sodium 136 mmol/L (137-145)
[2021-07-15 12:02] LABS: NT-proBNP (BNP-Adult 18+) 1510 pg/mL (<450)
== END ==
PROVIDERS: PCP Physician Assistant; Referring Provider Internal Medicine Cardiovascular Disease; Visit Provider Internal Medicine Cardiovascular Disease
DX: I50.22 Chronic systolic (congestive) heart failure (principal)
CPT/HCPCS: 36415; 80048; 83880

== ENCOUNTER → 2021-10-10 16:00 | Outpatient (CLI) | payer MEDICARE, OTHER, SELFPAY ==
--- NOTE | 2021-10-10 | DI.MRI.S_ITS ---
PROCEDURE: MR LUMBAR SPINE WO CON INDICATIONS: LUMBAR RADICULOPATHY TECHNIQUE: Noncontrast sagittal T1 spin echo and T2 fast echo, sagittal STIR, axial T1 and T2 fast spin echo through the lumbar spine. In cases with scoliosis, additional coronal T2 fast spin echo may be performed. COMPARISON: [facility], MR, MR LUMBAR SPINE WO CON, 07/07/2019, 15:35. FINDINGS: Image quality: Excellent. Alignment and Curvature: There is trace retrolisthesis of L2 on L3, L5 on S1 and trace anterolisthesis of L3 on L4, L4 on L5, unchanged. Bone Marrow: Marrow is of normal overall signal. Reactive endplate changes are present throughout the lumbar spine most severe at L2-3 and L5-S1. Prominent Schmorl's node is noted along the inferior endplate of L2 which has increased compared to prior exam. Increased T1 and T2 signal is present at L4 stable most suggestive of hemangioma. No acute vertebral body compression fractures. Spinal Cord: Conus medullaris terminates at the L1 level. Visualized cord demonstrates normal signal. There is an overall appearance of congenital spinal stenosis. Paraspinous Soft Tissues: No paravertebral masses. Discs: Moderate to severe desiccation is present throughout the lumbar spine most severe at L5-S1. L1-L2: Mild disc bulge with mild spinal stenosis, slightly progressive. Mild bilateral foraminal narrowing with facet and ligamentum flavum hypertrophy, stable. L2-L3: Mild disc bulge with moderate to severe spinal stenosis, stable compared to prior exam. Minimal epidural lipomatosis is present. [id number] bilateral foraminal narrowing, slightly progressive. Facet and ligamentum flavum hypertrophy are present. L3-L4: Mild disc bulge with moderate to severe spinal stenosis, slightly progressive compared to prior exam. Moderate bilateral foraminal narrowing particularly within subarticular recess is present, left greater than right with facet and ligamentum flavum hypertrophy. Appearance is stable compared to prior exam. L4-L5: Mild disc bulge without spinal stenosis, improved compared to prior exam. Posterior decompression postsurgical changes are present. There is unchanged moderate bilateral foraminal narrowing particularly through the subarticular recesses. L5-S1: Mild disc bulge with minimal spinal stenosis, slightly less prominent compared to prior exam. There is overall moderate bilateral foraminal narrowing with facet and ligamentum flavum hypertrophy. IMPRESSION: Multilevel degenerative changes. Improved appearance of spinal stenosis status post posterior decompression at L4-5. Multilevel congenital spinal stenosis is otherwise stable versus slightly progressive as noted. Multilevel foraminal narrowing demonstrating minimal areas of progression as above predominantly secondary to facet/ligamentum flavum arthropathy. Dictated by: Alondra Tate M.D. on 10/11/2021 at 17:22 Approved by: Alondra Tate M.D. on 10/11/2021 at 17:29
== END ==
PROVIDERS: PCP Physician Assistant; Referring Provider Physician Assistant Medical; Visit Provider Physician Assistant Medical
DX: M47.26 Other spondylosis with radiculopathy, lumbar region (principal); M47.27 Other spondylosis with radiculopathy, lumbosacral region; M48.061 Spinal stenosis, lumbar region without neurogenic claudication; M48.07 Spinal stenosis, lumbosacral region
CPT/HCPCS: 72148

== ENCOUNTER → 2021-11-13 14:46 | Outpatient (CLI) | payer MEDICARE, OTHER, SELFPAY ==
--- NOTE | 2021-11-13 | DI.RAD.S_ITS ---
PROCEDURE: XR HIP W PEL IF DONE LT 2V INDICATIONS: left hip pain TECHNIQUE: AP pelvis with lateral view(s) of the left hip(s). COMPARISON: [facility], , HIP 2V LEFT, 02/08/2012, 15:20. FINDINGS: Bones: No fractures or dislocations. Mild left joint space loss with fibrocystic change. Pelvic ring appears intact. No suspicious bony lesions. Soft tissues: The visualized bowel gas pattern is normal. No suspicious soft tissue calcifications. IMPRESSION: No acute osseous abnormality. Dictated by: Hector Farias M.D. on 11/13/2021 at 16:25 Approved by: Hector Farias M.D. on 11/13/2021 at 16:26
== END ==
PROVIDERS: PCP Physician Assistant; Referring Provider Physician Assistant; Visit Provider Physician Assistant
DX: M25.552 Pain in left hip (principal)
CPT/HCPCS: 73502

== ENCOUNTER → 2021-11-13 14:52 | Outpatient (CLI) | payer MEDICARE, OTHER, SELFPAY ==
[2021-11-13 15:54] LABS: BUN Creatinine Ratio 16.6 (6-22); Blood Urea Nitrogen 24 mg/dL (9-20); Calcium 9.2 mg/dL (8.4-10.2); Carbon Dioxide 27 mmol/L (22-32); Chloride 102 mmol/L (98-107); Estimated Glomerular Filt Rate 47.1 mL/min (>60); Glucose 103 mg/dL (80-110); HEMOLYSIS 21 (0-50); Potassium 4.9 mmol/L (3.4-5.1); Sodium 137 mmol/L (137-145)
[2021-11-13 16:02] LABS: NT-proBNP (BNP-Adult 18+) 2120 pg/mL (<450)
== END ==
PROVIDERS: PCP Physician Assistant; Referring Provider Internal Medicine Cardiovascular Disease; Visit Provider Internal Medicine Cardiovascular Disease
DX: I50.22 Chronic systolic (congestive) heart failure (principal)
CPT/HCPCS: 36415; 80048; 83880

== ENCOUNTER → 2022-04-29 16:16 | Outpatient (CLI) | payer MEDICARE, OTHER, SELFPAY ==
--- NOTE | 2022-04-29 16:19 | DI.RAD.S_ITS ---
PROCEDURE: XR LUMBAR SPINE 2-3V INDICATIONS: Lower back pain TECHNIQUE: 3 views of the lumbar spine were acquired. COMPARISON: [facility], MR, MR LUMBAR SPINE WO CON, 10/10/2021, 16:22. [facility], CR, XR LUMBAR SPINE 1V, 08/17/2020, 14:56. FINDINGS: Bones: 5 [id number] vertebrae are present. No vertebral body compression fractures. No suspicious bony lesions. Mild dextroconvex scoliotic curvature is seen. Mild grade 1 anterolisthesis is seen at the L4-L5 level. There is a fusion device seen posteriorly involving the L4-L5 spinous processes. This is stable compared to the prior examination. There is at least moderate disc space narrowing at L5-S1. Lower lumbar spine facet arthropathy is seen. Milder degenerative changes are seen elsewhere. Soft tissues: Overlying bowel gas pattern is normal. No suspicious soft tissue calcifications. IMPRESSION: Stable L4-5 postoperative hardware. Focal L5-S1 degenerative change. Dictated by: Errol Dunham M.D. on 04/29/2022 at 17:25 Approved by: Errol Dunham M.D. on 04/29/2022 at 17:27
== END ==
PROVIDERS: PCP Physician Assistant; Referring Provider Physician Assistant; Visit Provider Physician Assistant
DX: M47.817 Spondylosis without myelopathy or radiculopathy, lumbosacral region (principal); M54.50 Low back pain, unspecified; R10.9 Unspecified abdominal pain; Z98.1 Arthrodesis status
CPT/HCPCS: 72100

== ENCOUNTER → 2022-05-04 16:32 | Outpatient (CLI) | payer MEDICARE, OTHER, SELFPAY ==
--- NOTE | 2022-05-04 16:33 | DI.US.S_ITS ---
PROCEDURE: US RENAL COMPLETE INDICATIONS: left flank pain TECHNIQUE: Real-time scanning was performed of the kidneys and bladder, with image documentation. COMPARISON: [facility], CT, CT ABDOMEN PELVIS WO/W CON, 10/19/2020, 10:59. FINDINGS: Kidneys: Kidneys are normal in size. Right kidney measures 10.9 cm long; left kidney measures 11.6 cm long. Multiple right cortical cysts measure up to 17 x 15 mm. Renal cortical echotexture is normal. No hydronephrosis or nephrolithiasis. No suspicious solid mass lesions. Bladder: Pre-void bladder volume is 198 mL. Post-void residual is 170 mL. Prostate enlarged. There is a bladder diverticulum noted arising from the anterior portion. Miscellaneous: Incidental note is made of a hyperechoic lesion within the spleen measuring 4.3 x 3.1 cm. IMPRESSION: Right renal cortical cysts. Otherwise unremarkable ultrasound the kidneys Incidental splenic hyperechoic lesion. Consider follow-up contrast CT Prostatic hypertrophy and bladder diverticulum Approved by: Davy Ladd M.D. on 05/04/2022 at 16:37
== END ==
PROVIDERS: PCP Physician Assistant; Referring Provider Registered Nurse; Visit Provider Registered Nurse
DX: R10.9 Unspecified abdominal pain (principal); Q61.02 Congenital multiple renal cysts; N40.0 Benign prostatic hyperplasia without lower urinary tract symptoms
CPT/HCPCS: 76770

== ENCOUNTER → 2022-06-06 15:02 | Outpatient (CLI) | payer MEDICARE, OTHER, SELFPAY ==
[2022-06-06 16:56] LABS: Creatinine Urine Random 61.1 mg/dL
[2022-06-06 17:00] LABS: Microalbumi Creatinin Ratio Ur 40.9 ug/mg CR (<30); Microalbumin Urine Random 2.5 mg/dL (0-1.6)
[2022-06-06 18:05] LABS: Add Manual Diff / Slide Review NO; Basophils Absolute Auto 100 /uL (0-100); Eosinophils Absolute Auto 100 /uL (0-450); Eosinophils Percent Auto 2.4 % (2-4); Hematocrit 41.7 % (41-53); Hemoglobin 14.2 g/dL (13.5-17.5); Lymphocytes Absolute Auto 1000 /uL (1100-4500); Lymphocytes Percent Auto 16.3 % (25-40); Mean Corpuscular Hemoglobin 33.3 PG (26-34); Monocytes Absolute Auto 700 /uL (0-900); Monocytes Percent Auto 12.4 % (3-14); Neutrophils Absolute Auto 4100 /uL (1500-7000); Neutrophils Percent Auto 67.9 % (50-75); Platelet Count 210 X10^3/uL (150-400); Red Blood Cell Count 4.25 X10^6/uL (4.5-5.9); Red Cell Distribution Width 13.8 % (11.6-14.8)
[2022-06-06 18:18] LABS: Alanine Aminotransferase 34 IU/L (<50); Albumin 4.2 g/dL (3.5-5.0); Albumin Globulin Ratio 1.2 (1.0-2.8); Alkaline Phosphatase 65 U/L (38-126); Aspartate Aminotransferase 41 IU/L (17-59); BUN Creatinine Ratio 21.1 (6-22); Bilirubin Total 0.6 mg/dL (0.2-1.3); Blood Urea Nitrogen 26 mg/dL (9-20); Carbon Dioxide 28 mmol/L (22-32); Chloride 100 mmol/L (98-107); Estimated Glomerular Filt Rate 60 mL/min (>60); Globulin 3.5 g/dL (1.7-4.1); Glucose 76 mg/dL (80-110); HEMOLYSIS < 15 (0-50); Potassium 4.8 mmol/L (3.4-5.1); Sodium 140 mmol/L (137-145); Total Protein 7.7 g/dL (6.3-8.2)
== END ==
PROVIDERS: PCP Physician Assistant; Visit Provider Physician Assistant
DX: M54.50 Low back pain, unspecified (principal); R10.9 Unspecified abdominal pain
CPT/HCPCS: 36415; 80053; 82043; 82570; 85025

== ENCOUNTER → 2022-06-07 10:00 | Outpatient (CLI) | payer MEDICARE, OTHER, SELFPAY ==
--- NOTE | 2022-06-07 | DI.CT.S_ITS ---
PROCEDURE: CT ABDOMEN PELVIS W CON INDICATIONS: Splenic lesion TECHNIQUE: After the administration of oral and intravenous contrast, axial sections were acquired from the lung bases to the pubic symphysis. Coronal and sagittal reformats were performed. For radiation dose reduction, the following was used: automated exposure control, adjustment of mA and/or kV according to patient size. COMPARISON:[facility], CT, CT ABDOMEN PELVIS WO/W CON, 05/07/2018, 10:27. [facility], CT, CT ABDOMEN PELVIS WO/W CON, 10/19/2020, 10:59. [facility], US, US RENAL COMPLETE, 05/04/2022, 16:39. [facility], CT, ABDOMEN/PELVIS WITH CONTRAST, 11/18/2013, 15:57. FINDINGS: Image quality: Excellent. Lung bases: Unremarkable. Heart: No significant findings. ABDOMEN: Liver: The liver as a heterogeneous, nodular appearance suggesting cirrhotic transformation. Gallbladder: Unremarkable. Biliary ducts: Unremarkable. Pancreas: Unremarkable. Spleen: The spleen has a lobulated appearance with a lateral scar which is unchanged when compared with the CT dated October 19, [address] dated May 07, 2018. No discrete splenic mass lesions. Adrenal Glands: Unremarkable. Kidneys and Ureters: There is bilateral cortical renal atrophy and small cortical cystic lesions. No hydronephrosis. Stomach and Bowel: Stomach, small bowel loops, and colon are unremarkable. There are scattered sigmoid diverticula. No evidence for diverticulitis. Peritoneum: No abnormal intraperitoneal fluid. No free air. Ventral Wall: No hernia. Abdominal Nodes: No retroperitoneal or mesenteric adenopathy by size criteria. Vessels: Aorta and inferior vena cava are normal in size. PELVIS: Pelvic Organs: Unremarkable. Bladder: Unremarkable. Pelvic Nodes: No enlarged lymph nodes. Miscellaneous: No inguinal hernias are seen. Bones: Unremarkable. IMPRESSION: 1. Probable splenic scarring which is unchanged from the 2018 CT. The questionable hyperechoic lesion visualized on ultrasound likely represents mesenteric fat which is now located in the area of splenic volume loss associated with the scar. No suspicious splenic mass lesion visualized. 2. No acute intra-abdominal findings. Diverticulosis. No acute diverticulitis. 3. Nodular appearance of the liver suggesting cirrhotic transformation. Dictated by: Alissa Levi M.D. on 06/07/2022 at 14:15 Approved by: Alissa Levi M.D. on 06/07/2022 at 14:29
== END ==
PROVIDERS: PCP Physician Assistant; Referring Provider Physician Assistant; Visit Provider Physician Assistant
DX: D73.89 Other diseases of spleen (principal); K57.30 Diverticulosis of large intestine without perforation or abscess without bleeding
CPT/HCPCS: 74177; Q9967

== ENCOUNTER → 2022-10-31 08:29 | Outpatient (CLI) | payer MEDICARE, SELFPAY ==
[2022-10-31 09:52] LABS: Collection Time Urine 24 Hours; Creatinine 24 Hour Urine 1334 mg/day (1000-2000); Creatinine Urine Random 83.4 mg/dL; Protein (Total) Urine Random 86 mg/dL (0-12); Total Protein 24 Hour Urine 1376 mg/day (42-225); Total Volume Urine 1600 mL
== END ==
PROVIDERS: PCP Physician Assistant; Referring Provider Internal Medicine; Visit Provider Internal Medicine
DX: R80.1 Persistent proteinuria, unspecified (principal)
CPT/HCPCS: 82570; 84156

== ENCOUNTER → 2023-02-27 11:09 | Outpatient (CLI) | payer MEDICARE, SELFPAY ==
--- NOTE | 2023-02-27 11:11 | DI.CT.S_ITS ---
PROCEDURE: CT IVP A/P W/WO INDICATIONS: Hematuria, unspecified TECHNIQUE: Optional 5 mm thick noncontrast images acquired from the diaphragm to the symphysis pubis. After the administration of intravenous contrast, 5 mm thick images acquired from the diaphragm to the symphysis pubis after a 10-minute delay. 2 mm thick coronal and sagittal reformats were then performed of the kidneys and ureters. For radiation dose reduction, the following was used: automated exposure control, adjustment of mA and/or kV according to patient size. COMPARISON: [facility], CT, CT ABDOMEN PELVIS W CON, 06/07/2022, 11:41. FINDINGS: Image quality: Excellent. Lung bases: Lung bases are clear. Mild cardiomegaly. Urinary system: Both kidneys are normal in size, without hydronephrosis or nephrolithiasis on pre-contrast images. No perinephric fat stranding. There is normal bilateral renal enhancement. Renal calyces appear normal in morphology when filled with contrast. Opacified portions of both ureters demonstrate normal caliber. There is a wide mouth fundal bladder diverticulum. There is mild wall thickening within the diverticulum. The bladder is otherwise unremarkable. No focal filling defects. No calcified bladder stones. Prostate is enlarged. Other solid organs: Liver is normal in size and enhancement. A nodular contour of the liver suggests cirrhotic change. Gallbladder is unremarkable without calcified gallstones. Biliary system is non dilated. Pancreas enhances normally. Unchanged appearance of the spleen with a lobulated contour. No adrenal nodules. Peritoneum and bowel: Bowel loops demonstrate normal wall thickness and caliber. Diverticulosis without evidence of diverticulitis. No free fluid or air. Nodes and vessels: No retroperitoneal or mesenteric adenopathy by size criteria. Aorta and inferior vena cava are normal in size. Abdominal wall: No ventral hernias. Pelvis: No pathologic free pelvic fluid. No inguinal hernias or adenopathy. Bones: No suspicious bony lesions. No vertebral body compression fractures. Lumbar degenerative change with canal stenosis at L3-L4 and L4-L5. IMPRESSION: 1. No renal stones, ureteral stones, hydronephrosis, or findings suspicious for malignancy. 2. Wide mouth bladder fundal diverticulum. 3. Enlargement of the prostate. 4. Mild cardiomegaly. 5. Probable cirrhosis. 6. Lumbar degenerative change with canal stenosis. 7. Diverticulosis. Dictated by: Dale Levy M.D. on 02/27/2023 at 16:51 Approved by: Dale Levy M.D. on 02/27/2023 at 17:03
[2023-02-27 11:49] LABS: Estimated Glomerular Filt Rate 59 mL/min (>60)
== END ==
PROVIDERS: Radiology Diagnostic Radiology; PCP Physician Assistant; Referring Provider Urology; Visit Provider Urology
DX: N32.3 Diverticulum of bladder (principal); N40.0 Benign prostatic hyperplasia without lower urinary tract symptoms; I51.7 Cardiomegaly; K57.90 Diverticulosis of intestine, part unspecified, without perforation or abscess without bleeding; R10.9 Unspecified abdominal pain; R31.9 Hematuria, unspecified; R53.82 Chronic fatigue, unspecified; M47.816 Spondylosis without myelopathy or radiculopathy, lumbar region; M48.061 Spinal stenosis, lumbar region without neurogenic claudication
CPT/HCPCS: 36415; 74178; 82565; Q9967

== ENCOUNTER → 2023-04-01 14:20 | Outpatient (CLI) | payer MEDICARE, SELFPAY ==
[2023-04-01 14:52] LABS: Appearance Urine UA SL CLOUDY; Bilirubin Urine UA NEGATIVE (NEGATIVE); Color Urine UA YELLOW; Glucose Urine UA NEGATIVE (Negative); Ketones Urine UA NEGATIVE (NEGATIVE); Leukocyte Esterase Urine UA NEGATIVE (NEGATIVE); Nitrite Urine UA NEGATIVE (Negative); Occult Blood Urine UA 3+ (Negative); Protein Urine UA NEGATIVE (Negative); Urobilinogen Urine UA 0.2 E.U./dL (0.2); pH Urine UA 5.5 (4.5-8.0)
[2023-04-01 15:01] LABS: Bacteria Urine None Seen; Culture Indicated Urine Cult Not Indicated; RBC Urine 10-30/HPF (0-5/HPF); Squamous Epithelial Cell Urine None Seen (0-5/HPF); WBC Urine None Seen (0-5/HPF)
[2023-04-01 15:26] LABS: Albumin 4.2 g/dL (3.5-5.0); BUN Creatinine Ratio 20.6 (6-22); Blood Urea Nitrogen 26 mg/dL (9-20); Calcium 9.1 mg/dL (8.4-10.2); Carbon Dioxide 28 mmol/L (22-32); Chloride 100 mmol/L (98-107); Creatinine Urine Random 82.8 mg/dL; Estimated Glomerular Filt Rate 58 mL/min (>60); Glucose 87 mg/dL (80-110); HEMOLYSIS < 15 (0-50); Phosphorous 3.8 mg/dL (2.3-3.7); Potassium 4.7 mmol/L (3.4-5.1); Protein (Total) Urine Random 12 mg/dL (0-12); Protein Creatinine Ratio Urine 0.14 GRAM/24H; Sodium 135 mmol/L (137-145)
[2023-04-01 15:30] LABS: Microalbumi Creatinin Ratio Ur 51.9 ug/mg CR (<30); Microalbumin Urine Random 4.3 mg/dL (0-1.6)
== END ==
PROVIDERS: PCP Physician Assistant; Referring Provider Internal Medicine; Visit Provider Internal Medicine
DX: N18.31 Chronic kidney disease, stage 3a (principal)
CPT/HCPCS: 36415; 80069; 81001; 82043; 82570; 84156

== ENCOUNTER 2023-07-19 07:02 | Emergency (ER) | payer MEDICARE, SELFPAY ==
[2023-07-19 07:06] VITALS: BP 134/60; PULSE 55; RESP 18; TEMP 36.3; O2SAT 99; BMI 25.8
--- NOTE | 2023-07-19 07:13 | ED.GENADULT ---
HPI - General Adult General Chief complaint: Urogenital-Male Stated complaint: blood in urine Time Seen by Provider: 07/19/23 07:04 Source: patient Mode of arrival: Ambulatory History of Present Illness HPI narrative: 78-year-old male. 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 He stated that he urinated this morning and there was passage of clots. He is able to empty his bladder. He did notice that his blood pressure was elevated at the time. No fevers. No abdominal pain. No nausea or vomiting. Related Data Home Medications Medication Instructions Recorded Confirmed furosemide 40 mg tablet 40 mg PO DAILY 09/10/19 07/16/22 gabapentin 300 mg capsule 300 mg PO TID PRN 09/10/19 07/16/22 lisinopril 2.5 mg tablet 2.5 mg PO DAILY 09/10/19 07/16/22 omeprazole 40 mg capsule,delayed 40 mg PO DAILY 09/10/19 07/16/22 release potassium chloride 10 mEq 10 meq PO DAILY 09/10/19 07/16/22 capsule,extended release rivaroxaban 20 mg tablet (Xarelto) 20 mg PO DAILY 09/10/19 07/16/22 terazosin 2 mg capsule 5 mg PO BID #0 caps 09/10/19 07/16/22 Previous Rx's Medication Instructions Recorded mupirocin calcium 2 % topical cream 1 applic topical BID #15 grams 07/16/22 Allergies Allergy/AdvReac Type Severity Reaction Status Date / Time metronidazole Allergy Intermediate Confusion Verified 07/19/23 07:10 Penicillins [PENICILLINS] Allergy Mild ARM Verified 07/19/23 07:10 SWELLING Review of Systems Constitutional Constitutional: Reports system reviewed and no additional complaints, except as documented Gastrointestinal Gastrointestinal: Reports system reviewed and no additional complaints, except as documented Genitourinary Genitourinary: Reports system reviewed and no additional complaints, except as documented Hematologic/Lymphatic On Anticoagulants: Yes Patient History Medical History Diastasis recti Diastasis recti History of trigger finger Amyloidosis Arthritis Spinal stenosis Afib Surgical History Hx of carpal tunnel repair Hx of shoulder surgery Hx of knee surgery Family History Father Cancer Social History marital status: household members: spouse occupational status: previously employed Smoking Status: Never smoker alcohol intake: current substance use type: does not use Smoking Status: Never smoker alcohol intake frequency: 0-2 drinks per day Substance Use Type: does not use Exam Initial Vital Signs Initial Vital Signs: Vital Signs Temperature 97.4 F L 07/19/23 07:06 Pulse Rate 55 L 07/19/23 07:06 Respiratory Rate 18 07/19/23 07:06 Blood Pressure 134/60 07/19/23 07:06 Pulse Oximetry 99 07/19/23 07:06 Oxygen Delivery Method Room Air 07/19/23 07:06 HENMT Head: normal to inspection and normocephalic Resp Effort & Inspection: normal respiratory effort Cardio Rate: regular rate GI Inspection: normal to inspection and non-distended Neuro General: patient alert and patient awake Course Orders Ordered: ED Orders 07/19/23 07:12 Urinalysis and Microscopic Stat Urine Culture Stat Vital Signs Vital signs: Vital Signs - 8 hr 07/19/23 07:06 Temperature 97.4 F L Pulse Rate 55 L Respiratory Rate 18 Blood Pressure 134/60 Pulse Oximetry 99 Oxygen Delivery Method Room Air Medical Decision Making Lab Data Labs: Lab Results 07/19/23 Range/Units 07:12 Urine Color Brown Urine Appearance Cloudy Urine pH 6.0 (4.5-8.0) Ur Specific [place] 1.020 (1.000-1.035) Urine Protein 2+ H (Negative) Urine Glucose (UA) Negative (Negative) g/dL Urine Ketones Negative (NEGATIVE) Urine Occult Blood 3+ H (Negative) Urine Nitrate Negative (Negative) Urine Bilirubin Negative (NEGATIVE) Urine Urobilinogen 0.2 (0.2) E.U./dL Ur Leukocyte Esterase Negative (NEGATIVE) Urine RBC >100/hpf H (0-5/HPF) Urine WBC None seen (0-5/HPF) Ur Squamous Epith Cells None seen (0-5/HPF) Urine Bacteria None seen (None) Ur Culture Indicated? Cult not indicated MDM Narrative Medical decision making narrative: Patient is not hypotensive. Bradycardia is baseline for him. He is on Eliquis. No signs of urinary tract infection. He is emptying his bladder. No further workup required in the emergency department. Will discharge patient home without changes to his medications. He was given return precautions. Will have him contact his urologist for follow-up. He expressed understanding and agreement with plan. Discharge Plan Departure Patient Disposition: Home Clinical Impression: Hematuria Instructions: DI for Hematuria Activity Restrictions/Additional Instructions: Recommend that you continue to take all of your medications as directed. I do recommend that you contact your urologist this morning to let them know that you were seen here in the ER into discuss follow-up. Return to the emergency department for new or worsening symptoms. Prescriptions: No Action terazosin 2 mg capsule 5 mg PO BID Qty: 0 omeprazole 40 mg capsule,delayed release(DR/EC) 40 mg PO DAILY lisinopril 2.5 mg tablet 2.5 mg PO DAILY furosemide 40 mg tablet 40 mg PO DAILY potassium chloride 10 mEq capsule, extended release 10 meq PO DAILY gabapentin 300 mg capsule 300 mg PO TID PRN Xarelto 20 mg tablet 20 mg PO DAILY mupirocin calcium 2 % cream 1 applic topical BID Qty: 15 1RF Referrals: Alyse Fisher PA-C [Primary Care Provider] - Stand Alone Forms: Patient Portal/API
[2023-07-19 07:31] LABS: Appearance Urine UA CLOUDY; Bilirubin Urine UA NEGATIVE (NEGATIVE); Color Urine UA BROWN; Glucose Urine UA NEGATIVE (Negative); Ketones Urine UA NEGATIVE (NEGATIVE); Leukocyte Esterase Urine UA NEGATIVE (NEGATIVE); Nitrite Urine UA NEGATIVE (Negative); Occult Blood Urine UA 3+ (Negative); Protein Urine UA 2+ (Negative); Urobilinogen Urine UA 0.2 E.U./dL (0.2)
[2023-07-19 07:33] LABS: Bacteria Urine None Seen; Culture Indicated Urine Cult Not Indicated; RBC Urine >100/HPF (0-5/HPF); Squamous Epithelial Cell Urine None Seen (0-5/HPF); WBC Urine None Seen (0-5/HPF)
== END 2023-07-19 07:49 | disposition home or self-care (01) ==
PROVIDERS: Emergency Provider Emergency Medicine; PCP Physician Assistant
DX: R31.9 Hematuria, unspecified (principal); Z79.01 Long term (current) use of anticoagulants
CPT/HCPCS: 51798; 81001; 87086; 99282; 99283

== ENCOUNTER → 2023-10-21 13:04 | Outpatient (CLI) | payer MEDICARE, SELFPAY ==
[2023-10-21 14:57] LABS: Influenza A - CEPHEID Flu A NEGATIVE (NEGATIVE); Influenza B - CEPHEID Flu B NEGATIVE (NEGATIVE); Respiratory Syncytial Virus Negative (Negative)
[2023-10-21 15:03] LABS: COVID-19 CEPHEID 4-PLEX PCR Negative (Negative)
== END ==
PROVIDERS: PCP Physician Assistant; Visit Provider Physician Assistant Surgical
DX: R05.1 Acute cough (principal)
CPT/HCPCS: 0241U

== ENCOUNTER → 2023-10-24 14:35 | Outpatient (CLI) | payer MEDICARE, SELFPAY ==
--- NOTE | 2023-10-24 14:37 | DI.RAD.S_ITS ---
PROCEDURE: XR CHEST 2V INDICATIONS: COUGH TECHNIQUE: 2 views of the chest were acquired. COMPARISON: [facility], CR, XR CHEST 2V, 06/25/2018, 10:34. FINDINGS: Surgical changes and devices: Lead less pacemaker. Partially evaluated right shoulder arthroplasty. Lungs and pleura: Mild bibasilar atelectasis versus aspiration. No pleural effusions or pneumothorax. Mediastinum: Mediastinal contours are normal. Heart size is normal. Aortic arch is calcified indicating atherosclerosis. Bones and chest wall: No suspicious bony abnormalities. Soft tissues appear unremarkable. IMPRESSION: Mild bibasilar atelectasis versus aspiration. Approved by: Bri Geller M.D. on 10/25/2023 at 10:05
== END ==
PROVIDERS: PCP Physician Assistant; Referring Provider Physician Assistant; Visit Provider Physician Assistant
DX: R05.9 Cough, unspecified (principal); Z95.0 Presence of cardiac pacemaker
CPT/HCPCS: 71046

== ENCOUNTER → 2024-01-14 14:56 | Outpatient (CLI) | payer MEDICARE, SELFPAY ==
--- NOTE | 2024-01-14 14:58 | DI.RAD.S_ITS ---
PROCEDURE: XR CHEST 2V INDICATIONS: Cough TECHNIQUE: 2 views of the chest were acquired. COMPARISON: [facility], CR, XR CHEST 2V, 10/24/2023, 14:58. FINDINGS: Surgical changes and devices: Leadless pacer Lungs and pleura: Lungs are clear. No pleural effusions or pneumothorax. Mediastinum: Mediastinal contours are normal. Stable cardiomegaly. Bones and chest wall: No suspicious bony abnormalities. Soft tissues appear unremarkable. IMPRESSION: Cardiomegaly. No evidence acute pulmonary process. Dictated by: Dale Levy M.D. on 01/14/2024 at 16:11 Approved by: Dale Levy M.D. on 01/14/2024 at 16:11
== END ==
PROVIDERS: PCP Physician Assistant; Referring Provider Nurse Practitioner Family; Visit Provider Nurse Practitioner Family
DX: R05.1 Acute cough (principal); I51.7 Cardiomegaly
CPT/HCPCS: 0241U; 71046

== ENCOUNTER → 2024-01-14 14:56 | Outpatient (CLI) | payer MEDICARE, SELFPAY ==
[2024-01-14 16:52] LABS: Influenza A - CEPHEID Flu A NEGATIVE (NEGATIVE); Influenza B - CEPHEID Flu B NEGATIVE (NEGATIVE); Respiratory Syncytial Virus Negative (Negative)
[2024-01-14 17:16] LABS: COVID-19 CEPHEID 4-PLEX PCR Negative (Negative)
== END ==
PROVIDERS: PCP Physician Assistant; Visit Provider Nurse Practitioner Family
DX: R05.1 Acute cough (principal)
CPT/HCPCS: 0241U

== ENCOUNTER → 2024-06-25 | Outpatient (CLI) | payer MEDICARE, SELFPAY ==
--- NOTE | 2024-06-25 | DI.RAD.S_ITS ---
PROCEDURE: XR HAND LT MIN 3V INDICATIONS: arthritis left hand TECHNIQUE: 3 views of the hand(s) acquired. COMPARISON: None. FINDINGS: Bones: No fractures or dislocations. Scattered mild and moderate diffuse interphalangeal and MCP joint degeneration. Severe 5th PIP joint degeneration. Juxta-articular lucencies are noted. Moderate to severe 1st CMC joint degeneration. Carpal bones are normally aligned. No suspicious bony lesions. Soft tissues: No suspicious soft tissue calcifications. IMPRESSION: No acute osseous abnormalities. Degenerative changes throughout the hand, severe involving the 5th PIP joint. Juxta-articular lucencies are noted which may represent subchondral cystic change versus erosions. Dictated by: Kevin Casiano M.D. on 06/26/2024 at 11:32 Approved by: Kevin Casiano M.D. on 06/26/2024 at 11:35
== END ==
LOC: RAD 15:59
PROVIDERS: PCP Physician Assistant; Referring Provider Family Medicine; Visit Provider Family Medicine
DX: M18.12 Unilateral primary osteoarthritis of first carpometacarpal joint, left hand (principal); M19.042 Primary osteoarthritis, left hand; M19.041 Primary osteoarthritis, right hand
CPT/HCPCS: 73130

== ENCOUNTER → 2024-09-10 15:00 | Outpatient (CLI) | payer MEDICARE, SELFPAY ==
--- NOTE | 2024-09-10 15:02 | DI.RAD.S_ITS ---
PROCEDURE: XR RIBS LT 2V INDICATIONS: RIB PAIN TECHNIQUE: 2 views of the ribs were acquired. COMPARISON: None. FINDINGS: Surgical changes and devices: Wireless pacemaker device. Bones and chest wall: No fractures or dislocations. No suspicious bony lesions. There is a possible 6.7 cm ovoid soft tissue mass in the area of indicated abnormality along the lower chest wall. No visible calcification or radiodense foreign body.. Lungs and pleura: The visualized lung appears clear. No pleural effusions or pneumothorax are visible. IMPRESSION: Possible soft tissue mass in the area of indicated abnormality. Consider ultrasound for further evaluation. No underlying osseous abnormality. Dictated by: Letitia Villasenor M.D. on 09/10/2024 at 22:00 Approved by: Letitia Villasenor M.D. on 09/10/2024 at 22:04
== END ==
LOC: RAD 15:01
PROVIDERS: PCP Family Medicine; Referring Provider Family Medicine; Visit Provider Family Medicine
DX: R07.81 Pleurodynia (principal)
CPT/HCPCS: 71100

== ENCOUNTER → 2024-11-11 14:40 | Outpatient (CLI) | payer MEDICARE, SELFPAY ==
[2024-11-11 15:48] LABS: Estimated Glomerular Filt Rate 41 mL/min (>60)
== END ==
PROVIDERS: PCP Family Medicine; Referring Provider Urology; Visit Provider Urology
DX: R31.0 Gross hematuria (principal)
CPT/HCPCS: 36415; 82565

== ENCOUNTER → 2024-11-19 10:02 | Outpatient (CLI) | payer MEDICARE, SELFPAY ==
--- NOTE | 2024-11-19 | DI.CT.S_ITS ---
PROCEDURE: CT IVP A/P W/WO INDICATIONS: scrotal pain TECHNIQUE: Optional 5 mm thick noncontrast images acquired from the diaphragm to the symphysis pubis. After the administration of intravenous contrast, 5 mm thick images acquired from the diaphragm to the symphysis pubis after a 10-minute delay. 2 mm thick coronal and sagittal reformats were then performed of the kidneys and ureters. For radiation dose reduction, the following was used: automated exposure control, adjustment of mA and/or kV according to patient size. COMPARISON: [facility], CT, CT IVP A/P W/WO, 02/27/2023, 11:56. FINDINGS: Image quality: Diagnostic. Kidneys and Ureters: Both kidneys are normal in size, without hydronephrosis or nephrolithiasis. No perinephric fat stranding. Occasional cortical cysts. No solid mass. There is normal bilateral renal enhancement. Renal calyces appear normal in morphology when filled with contrast. A few left parapelvic cysts are present. Opacified portions of both ureters demonstrate normal caliber. No ureteral stone. Bladder: Irregular diverticulum arises anterior and superior from the urinary bladder dome and demonstrates mild internal mucosal hyperemia and slight irregularity. Minor overlying perivesicular inflammation. No associated calcifications or definite intraluminal enhancing mass. There is otherwise very slight diffuse irregularity of the posterior bladder wall. No focal thickening. OTHER: Lower chest: Cardiomegaly. Clear lung bases. Liver: Mildly nodular liver margin without focal mass. Gallbladder: No wall thickening or calcified stones. Biliary ducts: No biliary dilation. Pancreas: Normal size and morphology without visible ductal dilatation or inflammation. Spleen: Contour irregularity of the posterior lateral splenic margin may be due to remote trauma. No significant changes. Adrenal Glands: No adrenal nodules. Stomach and Bowel: Stomach and small bowel loops are normal caliber. Distal descending and sigmoid colon diverticulosis. Otherwise normal colon. Peritoneum: No abnormal intraperitoneal fluid. No free air. Ventral Wall: No hernia. Abdominal Nodes: No retroperitoneal or mesenteric adenopathy by size criteria. Vessels: Aorta and inferior vena cava are normal in size. PELVIS: Pelvic Organs: Moderate prostatomegaly. Smooth margin. Visible portions of the scrotal contents are normal. Pelvic Nodes: No enlarged lymph nodes. Miscellaneous: No inguinal hernias are seen. Bones: No aggressive osseous abnormality. IMPRESSION: Mild inflammation surrounding a wide-mouth anterior superior bladder diverticulum, chronic. No retained stones. 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 Recommend cystoscopy if not previously performed. Mildly nodular liver margin raises possibilities of early cirrhotic change. Moderate prostatomegaly. No explanation for scrotal pain on this exam. Dictated by: Letitia Villasenor M.D. on 11/19/2024 at 12:09 Approved by: Letitia Villasenor M.D. on 11/19/2024 at 12:23
--- NOTE | 2024-11-19 | DI.US.S_ITS ---
PROCEDURE: US SCROTUM INDICATIONS: scrotal pain TECHNIQUE: Real-time scanning was performed of the scrotum and testicles, with image documentation. Color and pulse Doppler interrogation was performed of both testicles. COMPARISON: [facility], CT, CT IVP A/P W/WO, 11/19/2024, 10:34. FINDINGS: Right: Testicle is normal in size at 5.3 x 3.3 x 1.8 cm, and homogenous in echotexture. Epididymis is normal in overall size and morphology. No hydrocele. Mild varicocele. Overlying scrotal skin is normal in thickness. Left: Testicle is normal in size at 4.3 x 2.5 x 1.7 cm, and mildly heterogeneous in echotexture. Epididymis is normal in overall size and mildly heterogeneous. No hydrocele. Mild varicocele. Overlying scrotal skin is normal in thickness. Doppler: Color and pulse Doppler demonstrate normal and symmetric arterial flow in both testicles. IMPRESSION: 1. Mildly heterogeneous appearance of the left testicle and epididymis, which could represent very mild or early epididymo-orchitis and clinical correlation is recommended. 2. Mild bilateral varicoceles. Approved by: Asad Kaufman M.D. on 11/19/2024 at 14:49
== END ==
PROVIDERS: PCP Family Medicine; Referring Provider Urology; Visit Provider Urology
DX: I86.1 Scrotal varices (principal); N32.3 Diverticulum of bladder; R31.0 Gross hematuria; N50.82 Scrotal pain; K57.30 Diverticulosis of large intestine without perforation or abscess without bleeding; N40.0 Benign prostatic hyperplasia without lower urinary tract symptoms; M54.50 Low back pain, unspecified; E85.4 Organ-limited amyloidosis; G89.29 Other chronic pain; I51.7 Cardiomegaly
CPT/HCPCS: 74178; 76870; 93975; Q9967